=== PATIENT | male | born 1990 | race American Indian/Alaskan Native ===

== ENCOUNTER 2018-11-05 02:37 | Emergency (ER) | payer MEDICAID ==
[2018-11-05 02:44] VITALS: BP 133/87
--- NOTE | 2018-11-05 03:57 | XRay Report ---
PROCEDURE: XR HAND 3+V RT TECHNIQUE: Right hand radiographs, PA, lateral, and oblique views. HISTORY: hand Pain and swelling COMPARISONS: None . FINDINGS: Fracture (s) and/or Dislocation(s): None . Alignment: Normal . Joint space(s): Normal . Soft tissues: Normal . Bone mineralization: Normal . Foreign bodies: None . IMPRESSION: Normal Examination . This document is electronically signed by Kiran Pulido MD., Nov 05 2018 03:54:46 AM ET
== END 2018-11-05 06:20 | disposition left against medical advice (07) ==
LOC: ED 02:37
DX: M79.644 Pain in right finger(s) (principal); Z53.21 Procedure and treatment not carried out due to patient leaving prior to being seen by health care provider